=== PATIENT | male | born 1955 | race Caucasian/White ===

== ENCOUNTER 2019-10-03 08:10 | Day surgery (SDC) | payer MEDICARE ==
--- NOTE | 2019-09-27 11:03 | NUR ---
PATIENT SEEN TODAY FOR RT TOTAL KNEE WITH YAHIR, SURGERY DATE 10/03/19. PATIENT LIVES WITH 93 YEAR OLD FATHER. PATIENT REPORTS: -HE LIVES IN SINGLE LEVEL HOME WITH NO STAIRS INSIDE OR OUTSIDE -HAS TUB/SHOWER COMBO WITH HAND RAIL -HAS SHOWER CHAIR WITH [employer] -HAS HAND-HELD SHOWER HEAD -HAS TOILET SEAT RISER AVAILABLE -NEEDS FWW, CLEARVIEW INFORMATION PROVIDED, PATIENT TO F/U TODAY PATIENT HAS PREOP JOINT P/T TODAY AT [facility] OUTPATIENT P/T. STATES HE WILL CONTINUE P/T AT [facility] IN [place]. DENIES NEED FOR HOMEHEALTH. STATES HIS UNCLE WILL PROVIDE TRANSPORATION FOR SURGERY DAY. PATIENT STATES FATHER WILL ASSIST WITH EASY TASKS AND MERCHANDISE STOCKER WILL HELP WITH OTHER DUTIES. *PATIENT REQUESTING ADDITIONAL ASSISTANCE WITH POSSIBLE MEDICAL TRANSPORT NEEDS. STATES UNCLE WITH BE RETURNING TO [place] AFTER SURGERY AND THAT HE MAY HAVE ISSUES WITH TRANSPORTATION TO P/T.*
--- NOTE | 2019-09-27 13:45 | NUR ---
ATTEMPTED TO F/U WITH PATIENT REGARDING TRANSPORTATION CONCERNS, VM FULL, UNABLE TO LEAVE VM. PER ANTONIO AT THE [facility], PATIENTS ARE ELIGIBLE FOR ESSENTIAL MEDICAL TANSPORT AT NO COST AND NEED TO SCHEDULE AT LEAST 1 WEEK IN ADVANCE. PHONE CALL TO [facility] IN CASE MANAGEMENT AND UPDATED ON INFORMATION REGARDING TRANSPORT.
[~2019-10-03] VITALS: Ht 185.4 cm; Wt 111.1 kg
[~2019-10-03 08:10] MED LIST: ACTOS45 MG PO; ALLEGRA ALLERG180 MG PO; ALLOPURINOL300 MG PO; AMLODIPINE BESYL5 MG PO; COUMADIN5 MG PO; DILTIAZEM 24HR120 M1 PO; FINASTERIDE5 MG PO; HYDROCHLOROTHIA25 MG PO; KLOR-CON 1010 MEQ PO; LIPITOR20 MG PO; LISINOPRIL20 MG PO; METFORMIN HCL1000 MG PO; METFORMIN HCL500 MG PO; METOPROLOL TAR100 MG PO; OXYCODON-ACETA1 EAC2 PO; POTASSIUM CHLO10 MEQ PO; PRINIVIL5 MG PO; PROSCAR5 MG PO; RANITIDINE HCL150 M1 PO; RANITIDINE HCL150 MG PO; SELENIUM200 MC1 PO; VITAMIN C500 M4 PO; VITAMIN D325 MCG PO; VITAMIN E400 UNI1 PO
--- NOTE | 2019-10-03 12:30 | NUR ---
10/03/19 1230 Abbie Webster 1159 PT ARRIVED IN PACU NON RESPONSIVE TO NOXIOUS STIMULI. 1205 CRYO CUFF PLACED ON R KNEE. 1215 PT REACTIVE. BLOOD SUGAR 146. 1229 RESTING. REU. NO C/O'S.
--- NOTE | 2019-10-03 14:00 | NUR ---
PT STATES THAT HE STILL IS HAVING SOME NUMBNESS IN HIS BUTT AT THIS TIME. THIS RN RE-EDUCATED PT THAT THE PELVIC AREA IS THE LAST AREA WITH FEELING THAT COMES BACK.
--- NOTE | 2019-10-03 15:28 | NUR ---
CALL LIGHT ANSWERED. PATIENT ASKS FOR PAIN MEDICATION. RN NOTIFIED. NO OTHER NEEDS AT THIS TIME
--- NOTE | 2019-10-03 17:23 | NUR ---
PATIENT RESTING IN BED. VITAL SIGNS DONE BY RN. I&O DONE. PATIENT DID NOT VOID DURING THIS PERIOD. RN NOTIFIED. CALL LIGHT WITHIN REACH. ICE WATER GIVEN. CALL LIGHT WITHIN REACH. NO OTHER NEEDS AT THIS TIME
[2019-10-03] MEDS ORDERED: POTASSIUM CHLO10 ME1 PO (17:26)
[2019-10-03] MEDS ORDERED: METOPROLOL SUC100 MG PO (17:27)
[2019-10-03] MEDS ORDERED: HYDROCHLOROTHIA25 MG PO (17:30)
[2019-10-03] MEDS ORDERED: PIOGLITAZONE HC30 MG PO (17:48)
[2019-10-03] MEDS ORDERED: METFORMIN HCL500 MG PO (17:49)
[2019-10-03] MEDS ORDERED: CLOBETASOL PROP50 ML TOP (17:51)
[2019-10-03] MEDS ORDERED: CALCIUM 600+D31 EACH PO (18:13)
[2019-10-03] MEDS ORDERED: OMEPRAZOLE20 MG PO (18:14)
[2019-10-03] MEDS ORDERED: ADULT ASPIRIN R81 MG PO (18:15)
--- NOTE | 2019-10-03 18:16 | NUR ---
MED REC COMPLETE
--- NOTE | 2019-10-03 19:23 | NUR ---
RECEIVED REPORT FROM CK AVERY. pt SITTING IN BED. WITH URINAL ABLE TO VOID APPROX 25 MLS. DISCUSSED PLAN WITH pt, pt AGREEABLE. WHITEBOARD UPDATED. pt REPOSITIONED. DRESSING INTACT WITH DIME SIZED SHADOWING. FOOT PUMPS AND CRYOCUFF ON. CALL LIGHT WITHIN REACH.
--- NOTE | 2019-10-03 20:32 | NUR ---
IN TO GIVE MEDICATIONS. VITALS DONE. pt ABLE TO VOID A LITTLE MORE. ALTON FLASHING ORANGE, REINFORCED DRESSING. ONQ PUMP AT 2. pt REPORTED THAT PAIN IS "OKAY" AT THIS TIME. HAS HOME CPAP AT BEDSIDE WILL HAVE RT COME SETUP. NO FURTHER REQUESTS AT THIS TIME. CALL LIGHT WITHIN REACH.
--- NOTE | 2019-10-03 22:30 | NUR ---
IN TO GIVE SCHEDULED MED. pt REPORTED 4/10 PAIN. ALTON REMAINS ORANGE, DRESSING REINFORCED AGAIN. CRYOCUFF IN PLACE. AES, FOOT PUMPS. CPAP SETUP BY RT. NO FURTHER REQUESTS AT THIS TIME. CALL LIGHT WITHIN REACH.
--- NOTE | 2019-10-03 23:22 | NUR ---
MD INFORMED ABOUT LEAKING ALTON DRESSING. OKAY TO LEAVE UNTIL MORNING.
--- NOTE | 2019-10-04 00:04 | NUR ---
pt RESTING WITH EYES CLOSED, RESPIRATIONS REGULAR AND UNLABORED, CPAP ON. MEDICATION GIVEN (SEE MAR). CALL LIGHT WITHIN REACH. ALTON DRESSING INTACT, LIGHT FLASHING ORANGE. FOOT PUMPS, AES, AND CRYOCUFF IN PLACE. CALL LIGHT WITHIN REACH
--- NOTE | 2019-10-04 01:09 | NUR ---
ROUNDED ON pt. RESTING WITH EYES CLOSED, RESPIRATIONS REGULAR AND UNLABORED. CALL LIGHT WITHIN REACH.
--- NOTE | 2019-10-04 02:11 | NUR ---
WOKE pt FOR VITALS AND MEDICATION. pt WEARING CPAP. ALERT AND ORIENTED. AMBULATED SBA TO TOILET, VOIDED. BACK TO BED. LINENS CHANGED. VITALS AND I&O RECORDED. MEDICATION GIVEN (SEE MAR). ASSESSMENT DONE. ALTON CONTINUES TO FLASH ORANGE. DRESSING UNCHANGED, INTACT. NO NEW SHADOWING NOTED. CRYOCUFF REFRESHED. AES, FOOT PUMPS ON. CALL LIGHT WITHIN REACH.
--- NOTE | 2019-10-04 04:19 | NUR ---
ROUNDED ON pt. RESTING WITH CPAP ON, EYES CLOSED, RESPIRATIONS REGULAR. CALL LIGHT WITHIN REACH.
--- NOTE | 2019-10-04 05:45 | NUR ---
pt WOKE TO VOICE. MEDICATIONS GIVEN (SEE MAR). pt DENIED PAIN AT THIS TIME. REQUESTED TO REST MORE PRIOR TO VOIDING. VITALS RECORDED. NO FURTHER REQUEST. CALL LIGHT WITHIN REACH.
--- NOTE | 2019-10-04 06:37 | NUR ---
pt RESTED MOST OF SHIFT, USED HOME CPAP. PAIN CONTROLLED WITH SCHEDULED MEDICATIONS. ALTON DRESSING INTACT. ORANGE LIGHT FLASHING A LEAK, REINFORCED DRESSING, LEAK UNRESOLVED, MD AWARE. AES, FOOT PUMPS, CRYOCUFF. 1PA FWW. IV SL. USES CALL LIGHT APPROPRIATELY.
--- NOTE | 2019-10-04 07:35 | NUR ---
PATIENT SITTING UP IN CHAIR. WHITE BOARD UPDATED. PATIENT'S HANDS AND FACE WASHED. CALL LIGHT WITHIN REACH. NO OTHER NEEDS AT THIS TIME
--- NOTE | 2019-10-04 07:42 | OR ---
[facility] [address], [place] [address] Signed DATE OF OPERATION: 10/03/2019 SURGEON: Jem Taylor MD PREOPERATIVE DIAGNOSIS: Degenerative joint disease, right knee, severe. POSTOPERATIVE DIAGNOSIS: Degenerative joint disease, right knee, severe. PROCEDURE PERFORMED: Right total knee arthroplasty with Carlos A. INDUSTRIAL TECHNOLOGY TEACHER: JESSI Marcelino ANESTHESIA: Spinal. BLOOD LOSS: 225 mL. TOURNIQUET TIME: 0. IMPLANTS: [place] Triathlon size 7 femur, 6 tibia, 9 mm polyethylene, and 40 patella. BRIEF HISTORY: Griffin is a 64-year-old gentleman with progressive worsening of osteoarthritis in his knee. We treated it for many years with injections and bracing as well as oral anti-inflammatories. He did not do well recently with that and wished to proceed with surgery. Once medical and cardiac clearance was obtained, he was taken to the operating room after adequate anesthesia. He was placed on the operating room table. All downside pressure points were well padded. Right leg was placed in well-padded hip bump and prepped and draped in a standard sterile fashion. The hip was approached through the standard anterior incision, carried through the skin and subcutaneous tissue. Subvastus approach was taken from the vastus distally and extended up the inferior aspect of the muscle. The underlying synovium was mobilized. The infrapatellar fat pad was excised and the MCL was elevated as a sleeve around the posteromedial corner. We then placed Electronically Signed By: JEM TAYLOR MD 10/04/19 0742 PATIENT NAME: GRIFFIN PABLO OPERATIVE REPORT DATE OF : 55 REPORT #: [id number] PHYSICIAN: JEM TAYLOR MD PCP: NO PRIMARY CARE PHYSICIAN REPORT IS CONFIDENTIAL AND NOT TO BE RELEASED WITHOUT AUTHORIZATION [facility] [address] [place], [place] [address] Signed the 2 checkpoints, one in the medial femoral condyle and one in the tibia and placed the arrays. The femoral array was placed intra-articular in the superior aspect of the medial femoral condyle. The tibial array was placed 1 handsbreadth distal to the tibial tubercle through separate stab incisions. The hip center was established and the knee was registered with the computer and all checkpoints were registered. Once this was accomplished, the osteophytes were removed. The anterior horns of the menisci and the ACL were transected. The robot was then brought in and the 4 straight cuts were made followed by the 2 ankle cuts. Once this was accomplished, all bony pieces were removed and the posterior osteophytes removed off the back of the femur. The meniscal remnants were removed as well. We then placed the trials, which were then checked and found to be in good alignment. Ligamentous balance per the Blowtorch robot was then equal. We cut drilled and measured the patella to a 40. We then drilled the distal femur and removed the trials. The final tibial keel punch was used. Because of the softness of his bone, we decided to go to a hybrid prosthesis. The bone was pulse lavaged and packed with dry Ray-Jamie. Once the cement was mixed, reached proper consistency, we placed it on the tibia and the patella. The tibia was then impacted into position and the polyethylene was snapped in. The femur was then impacted until it was well seated. The knee was extended and nicely loaded. The patella was then clamped into position and all excess cement from both the tibia and the patella was removed. The cement was allowed to harden. Once it hardened sufficiently, the knee was flexed and any remaining overflow was removed. The knee was pulse lavaged at intervals using 3 L of antibiotic irrigation. The On-Q pain pump was then placed percutaneously from the anterior thigh into the adductor canal using the suprapatellar approach. The arthrotomy was then closed using #1 Stratafix, the subcutaneous tissue with #0 Stratafix, and skin with jose raul. Wound was dressed with a long claudia dressing and Guilherme wrap. He was awakened, taken to the recovery room in satisfactory condition. All sponge, needle, and instrument counts were correct. Jem Taylor MD BA/MODL /[id number] Copies: Electronically Signed By: JEM TAYLOR MD 10/04/19 0742 PATIENT NAME: GRIFFIN PABLO OPERATIVE REPORT DATE OF : 55 REPORT #: [id number] PHYSICIAN: JEM TAYLOR MD PCP: NO PRIMARY CARE PHYSICIAN REPORT IS CONFIDENTIAL AND NOT TO BE RELEASED WITHOUT AUTHORIZATION [address] [address] Signed ~ Electronically Signed By: JEM TAYLOR MD 10/04/19 0742 PATIENT NAME: GRIFFIN PABLO OPERATIVE REPORT DATE OF : 55 REPORT #: [id number] PHYSICIAN: JEM TAYLOR MD PCP: NO PRIMARY CARE PHYSICIAN REPORT IS CONFIDENTIAL AND NOT TO BE RELEASED WITHOUT AUTHORIZATION
--- NOTE | 2019-10-04 07:53 | NUR ---
RECEIVED REPORT FROM MAGNOLIA STOVER. PT STATED THAT HE NEEDED TO USE THE RESTROOM. PT ABLE TO VOID SUFFICENT QUANITY THIS AM. PT STATES THAT HE HAS NO PAIN. PT AMBULATED WELL WITH FWW.
--- NOTE | 2019-10-04 09:16 | NUR ---
THIS RN IN PTS ROOM TO DO MORNING ASSESSMENT AND GIVE MORNING MEDS. PT SITTING UP IN CHAIR. PT STATES THAT PAIN 0/10. DISCUSSED WITH PT DEPENDING ON HOW WELL HE DOES WITH PHYSICAL THERAPY HE MIGHT BE ABLE TO GO HOME TODAY. PT CALLED HIS UNCLE TO NOTIFY HIM THAT HE MIHT NEED A RIDE THIS EVENING.
--- NOTE | 2019-10-04 10:00 | NUR ---
Spoke with Jose. He lives with his 93 you father. His Uncle Riley, will drive him home and assist through . Pt wouldlike to have OP PT through [facility] and this is already set up. His cousin is the PT. I spoke with their office and will send the chart when pt discharges. Spoke with PT and OT, he is doin well. OT states he needs assist with socks, pt has agreeed to not wear socks until he is feeling better as he has restriction to not bend his knee. Pt has DME in the home. Plans to dc today.
--- NOTE | 2019-10-04 13:01 | NUR ---
CALL LIGHT ANSWERED. PATIENT SITTING UP IN CHAIR. PATIENT BACKS TO BED. ONE PERSON ASSISTING WITH WALKER. VITAL SIGNS AND I&O DONE. CALL LIGHT WITHIN REACH. NO OTHER NEEDS AT THIS TIME
--- NOTE | 2019-10-04 13:41 | NUR ---
PT ALERT, ORIENTED AND JUST FINISHING UP LUNCH IN CHAIR. PT PLANS ON DC LATER TODAY, AND WILL HAVE P.T. AT [facility]. PLEASANT VISIT, PT LOOKING FORWARD TO INCREASED MOBILITY. EDOUARD MATTSON, WILL FOLLOW
[2019-10-04] MEDS ORDERED: GABAPENTIN300 MG PO (14:15)
[2019-10-04] MEDS ORDERED: OXYCODONE HCL5 MG PO (14:16)
[2019-10-04] MEDS ORDERED: SENNA8.6 MG PO (14:17)
[2019-10-04] MEDS ORDERED: ASPIR-TRIN325 MG PO (14:17)
--- NOTE | 2019-10-05 16:35 | NUR ---
Face sheet, H&P,progress notes, PT eval and notes faxed to [facility].
== END 2019-10-04 15:15 | disposition home or self-care (01) ==
LOC: DS 08:10 → MS 08:10 → DS 08:45
PROVIDERS: Specialist
PROC: 8E0YXBZ Computer Assisted Procedure of Lower Extremity (ICD-10-PCS; 2019-10-03)
PROC: 0SRC0J9 Replacement of Right Knee Joint with Synthetic Substitute, Cemented, Open Approach (ICD-10-PCS; principal; 2019-10-03 10:00)
DX: M17.11 Unilateral primary osteoarthritis, right knee (principal); I48.0 Paroxysmal atrial fibrillation; I10 Essential (primary) hypertension; E11.9 Type 2 diabetes mellitus without complications; E78.5 Hyperlipidemia, unspecified; E79.0 Hyperuricemia without signs of inflammatory arthritis and tophaceous disease; G47.00 Insomnia, unspecified; N40.0 Benign prostatic hyperplasia without lower urinary tract symptoms; K21.9 Gastro-esophageal reflux disease without esophagitis; Z88.0 Allergy status to penicillin; Z88.1 Allergy status to other antibiotic agents; Z79.899 Other long term (current) drug therapy; Z79.84 Long term (current) use of oral hypoglycemic drugs
CPT/HCPCS: 01402; 64447; 64450; 76942; 97110; 97116; 97161; 97165; C1713; C1776; J1100; J1815; J1885; J2001; J2250; J2704; J2795; J3010; J3370; J7060; J7121; J8540

== ENCOUNTER 2019-10-20 14:26 | Emergency (ER) | payer MEDICARE ==
[~2019-10-20] VITALS: Ht 185.4 cm; Wt 107.0 kg
[~2019-10-20 14:26] MED LIST changes: +ADULT ASPIRIN R81 MG PO; +ASPIR-TRIN325 MG PO; +CALCIUM 600+D31 EACH PO; +CLOBETASOL PROP50 ML TOP; +GABAPENTIN300 MG PO; +METOPROLOL SUC100 MG PO; +OMEPRAZOLE20 MG PO; +OXYCODONE HCL5 MG PO; +PIOGLITAZONE HC30 MG PO; +POTASSIUM CHLO10 ME1 PO; +SENNA8.6 MG PO
--- OUTSIDE RECORDS SUMMARY | 2019-10-20 14:28 | XMS ---
PreManage Notification: GRIFFIN PABLO Security Certified Pedorthotist Events No recent Security Events currently on file CRITERIA MET - History of Sepsis Dx CARE PROVIDERS HARI IGLESIAS PHONE: [phone] Jermay has no Care Guidelines for this patient. E.DHo VISIT COUNT (12 MO.) 1 [facility] TOTAL 3 NOTE: Visits indicate total known visits. ED/UCC VISIT TRACKING (12 MO.) 10/20/2019 14:26 [facility] TYPE: Emergency COMPLAINT: - LOW BLOOD PRESSURE [facility]2018 15[facility] DIAGNOSES: - Testicle Pain - Testicular pain 10/31/2018 12:51 [facility] - [facility] TYPE: Emergency COMPLAINT: - "not feeling good", dizzy, testicle pain DIAGNOSES: - Left testicular pain - Allergy status to penicillin - Calculus of kidney - Other oysterman (current) drug therapy - Hyperlipidemia, unspecified - Type 2 diabetes mellitus without complications - Fever, unspecified - Other mcc (current) drug therapy - Calculus of kidney - Allergy status to other drugs, medicaments and biological sub - Essential (primary) hypertension - Allergy status to other drugs, medicaments and biological sub - Essential (primary) hypertension - Fever, unspecified - Hyperlipidemia, unspecified - Left testicular pain - Type 2 diabetes mellitus without complications - Allergy status to penicillin INPATIENT VISIT TRACKING (12 MO.) 10/31/2018 15:[facility] Medical [facility] DIAGNOSES: - Epididymitis - Personal history of urinary calculi - Testicular pain, unspecified - Testicle Pain - Paroxysmal atrial fibrillation [email or web address]
== END 2019-10-20 16:51 | disposition home or self-care (01) ==
LOC: ED 14:26
DX: I95.9 Hypotension, unspecified (principal); Z88.1 Allergy status to other antibiotic agents; Z79.899 Other long term (current) drug therapy
CPT/HCPCS: 99284